=== PATIENT | female | born 2000 | race Caucasian/White ===

== ENCOUNTER 2021-01-09 02:13 | Emergency (ER) | payer BC, MEDICAID ==
[2021-01-09] MEDS ORDERED: Ketorolac 15 MG/ML SDV IVPUSH ONE (02:43)
[2021-01-09] MEDS ORDERED: Lactated Ringers 1,000 ML IV ONE (02:43)
[2021-01-09] MEDS ORDERED: Acetaminophen 325 MG Tab PO ONE (02:43)
[2021-01-09] MEDS ORDERED: Metoclopramide 10 MG/2 ML SDV IVPUSH ONE (02:43)
--- NOTE | 2021-01-09 02:49 | EDM.PDOC ---
ED HPI GENERAL MEDICAL PROBLEM - General Chief Complaint: Headache Stated Complaint: HEADACHE [id number] Time Seen by Provider: 01/09/21 02:49 Source of Information: Reports: Patient History Limitations: Reports: No Limitations - History of Present Illness INITIAL COMMENTS - FREE TEXT/NARRATIVE: Patient is a 20-year-old female presenting to the emergency room with a chief complaint of headache. Patient ports the headache is on the right side and feels like there is pressure behind her eye. Patient reports the headache is sharp and stabbing. Onset of headache was about an hour ago. Patient reports recurrent headaches like this for the past 3 days. She states sometimes her burning and sometimes are stabbing. Patient does have prior history of headaches which are generally more frontal in nature. She did take some ibuprofen prior to arrival which improved her pain. She states generally the headaches last from 15 minutes to an hour. Has not had any fevers or recent illnesses. Denies any blurry vision, denies any nausea or vomiting, denies any recent trauma. Headache Pain Score (Numeric/FACES): 8 - Related Data Allergies Allergy/AdvReac Type Severity Reaction Status Date / Time No Known Allergies Allergy Verified 01/09/21 02:24 Home Meds: Home Meds . [No Known Home Meds] 01/09/21 [History] Past Medical History - Past Health History Medical/Surgical History: Denies Medical/Surgical History ED ROS GENERAL - Review of Systems Review Of Systems: See Below Free Text/Narrative/Comment: In addition to that documented in the HPI above, the additional ROS was obtained: Constitutional: Denies fevers or chills Eyes: Denies vision changes ENMT: Denies sore throat CV: Denies chest pain Resp: Denies SOB GI: Denies vomiting or diarrhea : Denies painful urination MSK: Denies recent trauma Skin: Denies new rashes Neuro: Denies new numbness or tingling or weakness Endocrine: Denies unexpected weight loss Heme: Denies bleeding disorders - Physical Exam Exam: See Below Text/Narrative:: I have reviewed the triage vital signs Const: Well nourished, well developed, appears stated age Eyes: Pupils Equal and reactive to light bilaterally, no conjunctival injection HENT: No signs of trauma or swelling, Neck supple without meningismus demonstrating full range of motion of the neck. CV: Regular Rate Rhythm, Warm, well-perfused extremities RESP: Unlabored respiratory effort GI: soft, non-tender, non-distended, no masses MSK: No gross deformities appreciated Skin: Warm, dry. No rashes Neuro: Alert, program associate II-XII grossly intact. Sensation and motor function of extremities grossly intact. Psych: Appropriate mood and affect. Course - Vital Signs Last Recorded V/S: Last Vital Signs Temp 36.1 C 01/09/21 02:21 Pulse 80 01/09/21 02:21 Resp 18 01/09/21 02:21 BP 112/75 01/09/21 02:21 Pulse Ox 100 01/09/21 02:21 - Orders/Labs/Meds Meds: Medications Discontinued Medications Generic Name Dose Route Start Last Admin Trade Name Diaz PRN Reason Stop Dose Admin Acetaminophen 650 mg 01/09/21 02:43 01/09/21 03:00 Acetaminophen 325 Mg Tab PO 01/09/21 02:44 650 mg NOW ONE Administration Lactated Ringer's 1,000 mls @ 1,000 mls/hr 01/09/21 02:43 01/09/21 02:59 Ringers, Lactated IV 01/09/21 03:42 1,000 mls/hr .BOLUS ONE Administration Ketorolac Tromethamine 15 mg 01/09/21 02:43 01/09/21 02:59 Ketorolac 15 Mg/Ml Sdv IVPUSH 01/09/21 02:44 15 mg ONETIME ONE Administration Metoclopramide HCl 10 mg 01/09/21 02:43 01/09/21 02:59 Metoclopramide 10 Mg/2 Ml Sdv IVPUSH 01/09/21 02:44 10 mg ONETIME ONE Administration Departure - Departure Time of Disposition: 03:42 Disposition: Home, Self-Care 01 Clinical Impression: Headache - Discharge Information Instructions: Migraine Headache Referrals: PCP,None [Primary Care Provider] - Forms: ED Department Discharge Additional Instructions: Recommend the use of ibuprofen and Tylenol together along with plenty of fluids if his headache should return. If any changes in your vision, worsening of headache or any other emergent concerns, please do not hesitate to return to the emergency room. Please follow-up with primary care physician this upcoming week. Sepsis Event Note (ED) - Evaluation Sepsis Screening Result: No Definite Risk - Focused Exam Vital Signs: Vital Signs Temp Pulse Resp BP Pulse Ox 01/09/21 02:21 36.1 C 80 18 112/75 100 - Assessment/Plan Assessment:: Patient is a 20-year-old female presented to the emergency room with a complaint of headache. Headache resolved with treatment in the emergency room. Otherwise, her neurologic exam and vital signs were within normal limits. Differential diagnosis considered for this patient include encephalitis, temporal arteritis, subarachnoid hemorrhage. Based on evaluation, likely primary headache and [employer] patient for appropriate follow-up. Return precautions given as usual. Patient agrees with plan of care.
== END 2021-01-09 03:53 | disposition home or self-care (01) ==
LOC: JD.ED 02:13
DX: R51.9 Headache, unspecified (principal)
CPT/HCPCS: 96374; 96375; 99283; A9270; J1885; J2765; J7120